=== PATIENT | male | born 1980 | race Caucasian/White ===

== ENCOUNTER 2025-04-24 07:45 | Day surgery (SDC) | payer BC ==
[~2025-04-24 07:45] MED LIST: Lactated Ringers 1,000 ML IV SCH; Morphine 8 MG, EPINEPHrine 0.3 MG, Cefuroxime 750 MG, Ketorolac 30 MG, Sodium Chloride ... PRN; Sodium Chloride 0.9% 10 ML Syringe FLUSH PRN; Sodium Chloride 0.9% 10 ML Syringe FLUSH SCH
[2025-04-24] MEDS ORDERED: fentaNYL 100 MCG/2 ML SDV IVPUSH PRN (07:48)
[2025-04-24] MEDS ORDERED: Ondansetron 4 MG/2 ML SDV IVPUSH PRN (07:48)
[2025-04-24] MEDS ORDERED: fentaNYL 100 MCG/2 ML SDV ONE (07:49)
[2025-04-24] MEDS ORDERED: Midazolam 1 MG/ML 2 ML SDV ONE (07:49)
[2025-04-24] MEDS ORDERED: Ropivacaine 0.5% 5 MG/ML 30 ML SDV ONE (07:49)
[2025-04-24] MEDS: Lactated Ringers 1,000 ML IV SCH (07:52)
[2025-04-24] MEDS: oxyCODONE ER 10 MG TAB.ER PO ONE (08:07)
[2025-04-24] MEDS ORDERED: Triamcinolone Acetonide 40 MG/ML 1 ML SDV ONE (08:09)
[2025-04-24] MEDS ORDERED: propofoL 500 MG/50 ML 50 ML ONE ×2 (09:35→10:20)
[2025-04-24] MEDS ORDERED: Dexamethasone 4 MG/ML 5 ML MDV ONE (09:43)
[2025-04-24] MEDS ORDERED: Glycopyrrolate 0.2 MG/ML 2 ML SDV ONE (09:44)
[2025-04-24] MEDS: Morphine 8 MG, EPINEPHrine 0.3 MG, Cefuroxime 750 MG, Ketorolac 30 MG, Sodium Chloride ... PRN (10:32)
[2025-04-24] MEDS: Triamcinolone Acetonide 40 MG/ML 1 ML SDV ONE (10:54)
[2025-04-24 12:01] VITALS: BP 115/74
[2025-04-24 14:45] VITALS: PULSE 66
== END 2025-04-24 14:25 | disposition home or self-care (01) ==
LOC: JD.SDS 07:45
PROVIDERS: ATTEND Orthopaedic Surgery
DX: M17.0 Bilateral primary osteoarthritis of knee (principal); G47.33 Obstructive sleep apnea (adult) (pediatric); E78.2 Mixed hyperlipidemia; I10 Essential (primary) hypertension; E78.5 Hyperlipidemia, unspecified; Z79.899 Other long term (current) drug therapy
CPT/HCPCS: 0055T; 20610; 27477; 64447; 73560; 97116; 97161; A9270; C1713; C1776; J0169; J0665; J0690; J0697; J1100; J1596; J1885; J2250; J2272; J2704; J2795; J3010; J3301; J3373; J7120; 01402